=== PATIENT | female | born 1935 | race Caucasian/White ===

== ENCOUNTER 2022-05-10 08:47 | Inpatient (IN) | payer BC ==
[~2022-05-10] VITALS: Ht 165.1 cm; Wt 60.3 kg
--- NOTE | 2022-05-10 09:15 | NUR ---
UPPER QUADRANT ABDOMINAL PAIN, NAUSEA SINCE LAST NIGHT. PER EMS DAUGHTERENDORSES "DARK TARRY STOOL"
[2022-05-10] MEDS ORDERED: IV NS 0.9% 500 ML BAG IV ONE ×2 (09:30→12:30)
--- NOTE | 2022-05-10 09:32 | NUR ---
PT TO RADIOLOGY FOR ABDOMINAL CT SCAN VIA [facility].
--- NOTE | 2022-05-10 09:45 | NUR ---
established iv line at right ac 20 g infusing
--- NOTE | 2022-05-10 09:52 | NUR ---
blood sample obtained sent to lab
[2022-05-10 10:03] LABS: BASOPHILS % (AUTO) 0.2 % (0.0-2.0); HEMATOCRIT 48 % (33-45); HEMOGLOBIN 15.6 g/dL (11.5-14.8); LYMPHOCYTES # (AUTO) 0.9 K/uL (0.8-4.8); LYMPHOCYTES % (AUTO) 8.3 % (20.0-44.0); MEAN CORPUSCULAR HGB CONC 33 g/dl (31.0-36.0); MEAN CORPUSCULAR VOLUME 94 fL (82-100); MONOCYTES # (AUTO) 0.3 K/uL (0.1-1.30); MONOCYTES % (AUTO) 2.8 % (2.0-12.0); NEUTROPHILS % (AUTO) 88.7 % (43.0-81.0); PLATELET COUNT (AUTO) 354 K/uL (150-450); RED BLOOD CELL COUNT(AUTO) 5.08 MIL/uL (4.0-5.2); WHITE BLOOD COUNT (AUTO) 11.3 K/uL (4.3-11.0)
[2022-05-10 10:23] LABS: ALANINE AMINOTRANSFERASE 16 U/L (12-78); ALBUMIN 4.2 g/dL (3.4-5.0); ALKALINE PHOSPHATASE 114 U/L (46-116); ASPARTATE AMINOTRANSFERASE 14 U/L (15-37); BILIRUBIN,DIRECT 0.1 mg/dL (0.0-0.2); BILIRUBIN,TOTAL 0.5 mg/dL (0.2-1.0); CALCIUM, SERUM 9.7 mg/dL (8.5-10.1); CARBON DIOXIDE 29 mmol/L (21-32); CHLORIDE 98 mmol/L (98-107); CREATININE 1.1 mg/dL (0.6-1.3); GLUCOSE 202 mg/dL (74-106); LIPASE 101 U/L (73-393); POTASSIUM 3.6 mmol/L (3.5-5.1); SODIUM SERUM 138 mmol/L (136-145); TOTAL PROTEIN, SERUM 8.9 g/dL (6.4-8.2); UREA NITROGEN, BLOOD 24 mg/dL (7-18)
--- NOTE | 2022-05-10 10:30 | NUR ---
COVID SWAB COLLECTED AND SENT TO LAB
--- NOTE | 2022-05-10 10:44 | NUR ---
Leida GARDINER PAGED FOR SX CONSULT
[2022-05-10] MEDS ORDERED: PARO10TA4 PO (10:45)
[2022-05-10] MEDS ORDERED: APIX5TAB PO (10:45)
[2022-05-10] MEDS ORDERED: DILT120C47 PO (10:45)
--- NOTE | 2022-05-10 10:45 | NUR ---
MOVE SHEET SUBMITTED.
--- NOTE | 2022-05-10 10:46 | NUR ---
PANEL ON-CALL PAGED
--- NOTE | 2022-05-10 10:55 | NUR ---
DR. MILTON SPEAKING WITH DR. AZAR
--- NOTE | 2022-05-10 10:56 | NUR ---
DR AZAR SPEAKING W/ DR THORPE
--- NOTE | 2022-05-10 10:58 | NUR ---
DR. AZAR SPEAKING W/ DR MILTON.
--- NOTE | 2022-05-10 11:14 | NUR ---
ROOM 323-2 PER HOUSE SUP
[2022-05-10] MEDS ORDERED: MAG HYDROX/AL HYDROX/SIMETH 30 ML UDC PO PRN (12:00)
[2022-05-10] MEDS ORDERED: MAGNESIUM HYDROXIDE 30 ML UDC PO PRN (12:00)
[2022-05-10] MEDS ORDERED: Z GUARD REMEDY 4 OZ OINT TP PRN (12:00)
[2022-05-10] MEDS ORDERED: ACETAMINOPHEN 325 MG TABLET PO PRN (12:00)
--- NOTE | 2022-05-10 12:07 | NUR ---
PT REPORT GIVEN TO MISAEL DAWN
[2022-05-10] MEDS ORDERED: PIPERACILLIN /TAZOBACTAM 3.375 G in IV D5W 50 ML IV ONE (12:30)
--- NOTE | 2022-05-10 12:35 | NUR ---
PT TRANSFERRED TO [facility] VIA [facility]. WARM HANDOFF GIVEN TO RN ASSIGNED.
--- NOTE | 2022-05-10 12:36 | NUR ---
STRUCTURAL WORKER NOTES RECEIVED PT FROM E.R. STAFF VIA HARPAL, PT IS AWAKE, ALERT AND ORIENTED, WITH COMPLAINT OF SOME ABDOMINAL PAIN, NOT IN DISTRESS, TOLERATES ROOM AIR WELL, ASSISTED TO BED, MADE COMFORTABLE, ROOM SET UP ORIENTATION PROVIDED TO PT, VERBALIZED UNDERSTANDING, ADMITTING ORDERS RECEIVED FROM MD, CALL LIGHT WITHIN REACH, PT KEPT NPO ORDERED, NEEDS ATTENDED.
[2022-05-10] MEDS: IV D5/0.45 NACL 1,000 ML IV PRN (13:32)
[2022-05-10] MEDS: MORPHINE SULFATE INJ 2 MG/ML DISP.SYRIN IV PRN ×2 (13:45→18:17)
--- NOTE | 2022-05-10 19:04 | NUR ---
CITRIX CONSULTANT NOTES PT IN BED, AWAKE, ALERT AND ORIENTED, PAIN MEDICATION GIVEN FOR ABDOMINAL PAIN, VERBALIZED RELIEF, KEPT PT NPO, PT SEEN AND EXAMINED BY MAREN NETWORK LIAISON, ORDERED TO INSERT NGT WITH LOW INTERMITTENT SUCTION, NOTED AND CARRIED OUT, PT VOMITED AROUND 500ML OF BLACK VOMIT, AWAITING CXR RESULT FOR VERIFICATION OF NG PLACEMENT, DR. THORPE AWARE, ORDERED STAT CBC, PT NOT IN DISTRESS, IV FLUIDS INFUSING WELL, ENDORSED TO PM NURSE FOR CONTINUITY OF CARE.
--- NOTE | 2022-05-10 19:30 | NUR ---
RN OPENING NOTE RECEIVED PATIENT IN BED, AWAKE, ALERT AND ORIENTED X3. AFEBRILE AND NOT IN ANY FORM OF ACUTE DISTRESS. BREATHING EVEN AND NON LABORED. WITH NG TUBE IN PLACE ON LOW INTERMITTENT SUCTION. ON NPO ORDERED. WITH IV ACCESS ON RIGHT AC 20G INFUSING WITH D5 1/2NS AT 75ML/HR. SAFETY MEASURES IN PLACE. KEPT BED IN LOCKED AND IN LOW POSITION. SIDE RAILS UP X2. ADVISED TO USE THE CALL LIGHT WHEN IN NEED OF ASSISTANCE.
[2022-05-10 20:00] VITALS: BP 140/93
[2022-05-10 20:11] LABS: BASOPHILS % (AUTO) 0.2 % (0.0-2.0); HEMATOCRIT 47 % (33-45); HEMOGLOBIN 15.4 g/dL (11.5-14.8); LYMPHOCYTES # (AUTO) 1.2 K/uL (0.8-4.8); LYMPHOCYTES % (AUTO) 9.6 % (20.0-44.0); MEAN CORPUSCULAR HGB CONC 33 g/dl (31.0-36.0); MEAN CORPUSCULAR VOLUME 93 fL (82-100); MONOCYTES # (AUTO) 0.7 K/uL (0.1-1.30); MONOCYTES % (AUTO) 5.4 % (2.0-12.0); NEUTROPHILS # (AUTO) 10.5 K/uL (1.8-8.9); NEUTROPHILS % (AUTO) 84.8 % (43.0-81.0); PLATELET COUNT (AUTO) 344 K/uL (150-450); RED BLOOD CELL COUNT(AUTO) 5.04 MIL/uL (4.0-5.2); WHITE BLOOD COUNT (AUTO) 12.4 K/uL (4.3-11.0)
[2022-05-11] VITALS: BP 152/85
[2022-05-11 04:00] VITALS: BP 136/94
[2022-05-11] MEDS: IV D5/0.45 NACL 1,000 ML IV PRN ×2 (05:27→19:38)
[2022-05-11 06:48] LABS: BASOPHILS % (AUTO) 0.2 % (0.0-2.0); HEMATOCRIT 45 % (33-45); HEMOGLOBIN 14.9 g/dL (11.5-14.8); LYMPHOCYTES # (AUTO) 1.5 K/uL (0.8-4.8); MEAN CORPUSCULAR HGB CONC 33 g/dl (31.0-36.0); MEAN CORPUSCULAR VOLUME 93 fL (82-100); MONOCYTES # (AUTO) 1.2 K/uL (0.1-1.30); MONOCYTES % (AUTO) 9.6 % (2.0-12.0); NEUTROPHILS % (AUTO) 78.2 % (43.0-81.0); PLATELET COUNT (AUTO) 308 K/uL (150-450); WHITE BLOOD COUNT (AUTO) 12.8 K/uL (4.3-11.0)
--- NOTE | 2022-05-11 06:50 | NUR ---
RN CLOSING NOTE PATIENT IN BED, WITH HOB ELEVATED, ASLEEP BUT EASY TO AROUSE AND RESPONSIVE. AFEBRILE AND NOT IN ANY FORM ACUTE DISTRESS. BREATHING EVEN AND NON LABORED. WITH NG TUBE IN PLACE ON LOW INTERMITTENT SUCTION. MAINTAINED ON NPO ORDERED. WITH IV ACCESS ON RIGHT AC 20G INFUSING WITH D5 1/2NS AT 75ML/HR. SAFETY MEASURES IN PLACE. KEPT BED IN LOCKED AND IN LOW POSITION. SIDE RAILS UP X2. ADVISED TO USE THE CALL LIGHT WHEN IN NEED OF ASSISTANCE.CONSTANT VISUAL CHECK DONE TO ENSURE SAFETY. ALL NURSING NEEDS ATTENDED.
--- NOTE | 2022-05-11 07:00 | NUR ---
TECHNICAL SUPPORT PROFESSIONAL OPENING NOTES: RECEIVED PT IN BED ASLEEP IN BED,EASILY AROUSED WITH STIMULI. ALERT AND ORIENTED X 3. NO SOB O CARDIAC DISTRESS NOTED. ON AD TRAFFICKER: CURRENT READING SR @87BPM. MAINTAINED ON NPO, NOTED WITH NGT ON R NARES HOOKED TO INTERMITTENT SUCTION NOTED WITH COFFEE GROUND DISCHARGE. IV ACCESS ON RAC GAUGE 20 PATENT AND INTACT AND IV FLUID RUNNING WELL D5 1/2 NS @75ML/HR. SAFETY PRECAUTIONS MAINTAINED: BED LOCKED AND IN LOWEST POSITION, SIDE RAILS UP X 2. CALL LIGHT IN EASY REACH AND WILL MONITOR PT ACCORDINGLY.
[2022-05-11 07:37] LABS: CALCIUM, SERUM 8.9 mg/dL (8.5-10.1); CARBON DIOXIDE 27 mmol/L (21-32); CHLORIDE 102 mmol/L (98-107); GLUCOSE 134 mg/dL (74-106); MAGNESIUM 2.4 mg/dL (1.8-2.4); PHOSPHORUS 3.9 mg/dL (2.5-4.9); POTASSIUM 4.2 mmol/L (3.5-5.1); SODIUM SERUM 138 mmol/L (136-145); UREA NITROGEN, BLOOD 29 mg/dL (7-18)
[2022-05-11 08:00] VITALS: BP 138/87
--- NOTE | 2022-05-11 11:18 | NUR ---
RN NOTES: FOLLOW UP XRAY OF SMALL BOWEL SPOKE TO GAYLA LEONE) AND PT IS ON SCHEDULE AFTER LUNCH TODAY. INFORMED PT AND VERBALIZED UNDERSTANDING.
--- NOTE | 2022-05-11 12:45 | NUR ---
RN NOTES: FOLLOWED UP FOR SMALL BOWEL FOLLOW THROUGH XRAY, SPOKE TO ABDULAZIZ (TRISTEN) AND THEY ARE AWARE PT WILL HAVE THE PROCEDURE TODAY. THEY WILL TOW MOTOR DRIVER PT.
[2022-05-11 12:46] VITALS: BP 134/83
--- NOTE | 2022-05-11 15:23 | NUR ---
RN NOTES: SEEN AND EXAMINED BY DATA COLLECTION ASSOCIATE MAREN, STATED MAINTAIN PT IN NPO, FOLLOW UP WITH X-RAY AND CHANGE IT TO STAT. CALLED RADIOLOGY DEPT SPOKE TO OTIS, INFORMED THEM X-RAY OF SMALL BOWEL FOLLOW THROUGH IS STAT. HE SAID THEY WILL GO UP. WILL FOLLOW UP.
--- NOTE | 2022-05-11 15:55 | NUR ---
RN NOTES: FOLLOWED UP RADIOLOGY, SPOKE TO LYNSEY (DIRECTOR EMPLOYEE SAFETY AND HEALTH) PT WILL BE PICKED UP IN 30 MINS. WILL FOLLOW UP.
[2022-05-11 16:00] VITALS: BP 134/86
[2022-05-11] MEDS ORDERED: DIATR MEGLU/DIATRIZOATE SODIUM 120 ML BOTTLE (GASTROGRAPHIN) ONE (16:27)
--- NOTE | 2022-05-11 17:00 | NUR ---
RN NOTES: PT WENT TO XRAY DEPT FOR SMALL BOWEL FOLLOW THROUGH X-RAY, PT STABLE. UNHOOKED TO SUCTION. ACCOMPANIED TO RADIOLOGY DEPT, AND INJECTED BARIUM VIA NGT TUBE, CHANO ASCENCIO MADE AWARE.
[2022-05-11] MEDS: ONDANSETRON HCL/PF 4 MG/2 ML VIAL IVP PRN (17:32)
--- NOTE | 2022-05-11 17:38 | NUR ---
RN NOTES: INFORMED PHARMACOGENETICIST SILVA PT VOMITED X2 IN RADIOLOGY DEPT, ZOFRAN IV GIVEN. NO FURTHER ORDERS NOTED.
--- NOTE | 2022-05-11 19:00 | NUR ---
RN CLOSING NOTES: PT STILL IN RADIOLOGY DEPARTMENT, ENDORSEMENT GIVEN TO NOC SHIFT RN FOR SHANIQUA.
--- NOTE | 2022-05-11 19:30 | NUR ---
ASSISTANT WINEMAKER OPENING NOTE RECEIVED PATIENT IN BED, WITH HOB ELEVATED, ALERT AND ORIENTED X3. AFEBRILE AND NOT IN ANY FORM OF ACUTE DISTRESS. BREATHING EVEN AND NON LABORED. WITH NG TUBE IN PLACE AND PER RADIOLOGIST, HOLD LOW INTERMITTENT SUCTION FOR THE MEANTIME IN PREPARATION FOR SMALL BOWEL FOLLOW THROUGH. MAINTAINED ON NPO ORDERED. WITH IV ACCESS ON RIGHT AC 20G INFUSING WITH D5 1/2NS AT 75ML/HR. SAFETY MEASURES IN PLACE. KEPT BED IN LOCKED AND IN LOW POSITION. SIDE RAILS UP X2. ADVISED TO USE THE CALL LIGHT WHEN IN NEED OF ASSISTANCE.
[2022-05-11 20:00] VITALS: BP 125/80
--- NOTE | 2022-05-11 21:00 | NUR ---
CENTRAL AISLE CASHIER NOTE AT AROUND 2049, RADIOLOGIST WESLY CAME TO PERFORM ANOTHER X-RAY TO CHECK THE BARIUM BUT PER TECH, THE CONTRAST DIDN'T MOVE OR PROGRESS. RADIOLOGIST THEN SUGGEST TO DO ANOTHER DOSE BUT WHEN THEY DID IT THIS MORNING, PATIENT KEEPS ON VOMITING. NOTIFIED MARTHA ASCENCIO ABOUT THE SITUATION AND ADVISED TO CONTACT DR. MILTON. INFORM DR. MILTON AND TO ASK IF HE STILL WANTS TO PROCEED WITH THE PROCEDURE. AWAITING FOR RESPONSE.
[2022-05-12] VITALS (8 sets, daily range): BP systolic 106–138; BP diastolic 66–95
[2022-05-12] MEDS: ONDANSETRON HCL/PF 4 MG/2 ML VIAL IVP PRN ×2 (00:44→06:37)
--- NOTE | 2022-05-12 00:58 | NUR ---
ELECTRIC SHOVEL OPERATOR NOTE AT AROUND 1240, PATIENT HAD EMESIS X1 WITH GREENISH (BILE) VOMITUS. ADMINISTERED ZOFRAN VIA IV.
--- NOTE | 2022-05-12 06:45 | NUR ---
LITHOPONE MILL WORKER NOTE PATIENT HAD EPISODES OF EMESIS (BILE) APPROX. 30ML EVERY TIME SHE VOMITS. NO NEW ORDER FROM MD YET. ZOFRAN IV GIVEN.
[2022-05-12 06:46] LABS: BASOPHILS % (AUTO) 0.1 % (0.0-2.0); HEMATOCRIT 43 % (33-45); HEMOGLOBIN 14.6 g/dL (11.5-14.8); LYMPHOCYTES # (AUTO) 1.3 K/uL (0.8-4.8); LYMPHOCYTES % (AUTO) 10.5 % (20.0-44.0); MEAN CORPUSCULAR HGB CONC 34 g/dl (31.0-36.0); MEAN CORPUSCULAR VOLUME 93 fL (82-100); MONOCYTES % (AUTO) 8.3 % (2.0-12.0); NEUTROPHILS % (AUTO) 81.1 % (43.0-81.0); PLATELET COUNT (AUTO) 323 K/uL (150-450); RED BLOOD CELL COUNT(AUTO) 4.67 MIL/uL (4.0-5.2); WHITE BLOOD COUNT (AUTO) 12.3 K/uL (4.3-11.0)
--- NOTE | 2022-05-12 06:48 | NUR ---
DIRECTOR OF RESIDENTIAL SERVICES CLOSING NOTE PATIENT IN BED, WITH HOB ELEVATED, ASLEEP BUT EASY TO AROUSE AND RESPONSIVE. AFEBRILE AND NOT IN ANY FORM OF ACUTE DISTRESS. BREATHING EVEN AND NON LABORED. WITH NG TUBE IN PLACE AND PER RADIOLOGIST, HOLD LOW INTERMITTENT SUCTION FOR THE MEANTIME. AWAITING FOR MD'S ORDER IF WILL PROCEED WITH SBFT. MAINTAINED ON NPO ORDERED. WITH IV ACCESS ON RIGHT AC 20G INFUSING WITH D5 1/2NS AT 75ML/HR. MEDICATED ORDERED. SAFETY MEASURES IN PLACE. KEPT BED IN LOCKED AND IN LOW POSITION. SIDE RAILS UP X2. ADVISED TO USE THE CALL LIGHT WHEN IN NEED OF ASSISTANCE.
[2022-05-12 06:53] LABS: ALBUMIN 3.2 g/dL (3.4-5.0); BILIRUBIN,DIRECT 0.2 mg/dL (0.0-0.2); BILIRUBIN,TOTAL 0.6 mg/dL (0.2-1.0); CALCIUM, SERUM 8.7 mg/dL (8.5-10.1); MAGNESIUM 2.4 mg/dL (1.8-2.4); PHOSPHORUS 4.2 mg/dL (2.5-4.9); POTASSIUM 4.1 mmol/L (3.5-5.1); TOTAL PROTEIN, SERUM 7.4 g/dL (6.4-8.2)
--- NOTE | 2022-05-12 09:32 | NUR ---
RN WILL CHECK WITH SUPERVISOR ASSEMBLY ROOM MAREN TO FIND OUT IF SHE WANTS TO CONTINUE EXAM , DO TO PT STATUS
[2022-05-12] MEDS: IV D5/0.45 NACL 1,000 ML IV PRN (09:42)
[2022-05-12] MEDS ORDERED: ANESTHESIA TRAY IN PYXIS 1 EA TRAY MC ONE ×3 (14:10→21:09)
[2022-05-12] MEDS ORDERED: BUPIVACAINE MPF 0.5% W/EPI INJ 30 ML VIAL ONE ×2 (14:11→15:51)
[2022-05-12] MEDS ORDERED: LIDOCAINE 1% INJ 50 ML MDV IJ ONE ×2 (14:11→15:51)
[2022-05-12] MEDS ORDERED: FENTANYL PF 100MCG/2ML AMPUL ONE (16:09)
[2022-05-12] MEDS ORDERED: ROCURONIUM BROMIDE 50 MG/5 ML ONE (18:46)
--- NOTE | 2022-05-12 19:00 | NUR ---
HIGH SCHOOL INDUSTRIAL ARTS TEACHER OPENING NOTE PATIENT IS OUT FOR SURGERY, NOT COMING BACK TO UNIT YET . CHANGE SHIFT REPORT RECEIVED FROM DAY SHIFT RN.
--- NOTE | 2022-05-12 19:00 | NUR ---
RN CLOSING NOTE PATIENT NPO SINCE HER [place] [facility] [place] DUE TO BOWEL OBSTRUCTION. PATIENT WITH NG TUBE; HAD SOME EPISODES OF GREEN LIQUID EMESIS IN THE MORNING, ONLINE PRODUCER MAREN ORDERED INTERMITTENT NG TUBE SUCTION TOTAL OF 700 CC WAS THE OUTPUT. PATIENT WAS TAKEN TO SURGERY AT 1700 FOR THE LAPAROSCOPIC SURGERY BLOOD TRANSFUSION, ANESTHESIA AND SURGERY CONSENT FORM ALL WAS SIGNED BY PATIENT AND ARE IN THE CHART. PATIENT'S SON KAMILA AND HER DAUGHTER WERE AT BEDSIDE UPON TAKING THE CONSENT FROM THE PATIENT. PATIENT STILL IN SURGERY/RECOVERY UNTIL NOW. WILL ENDORSE THE PATIENT TO THE TIME BROKER NURSE.
--- NOTE | 2022-05-12 22:00 | NUR ---
ICU/SALESPERSON NECKTIES PT CAME FROM SURGERY. PT PLACED ON MONITOR. PT'S N/G PLACED ON LOW INTERMIT SUCTION. PT CURRENTLY DENIES ANY PAIN. ABDOMEN HAS X3 STERI STRIPS, WHICH IS CLEAN DRY AND INTACT. CALL LIGHT WITHIN REACH. NO NEW ORDERS RECEIVED.
[2022-05-13] VITALS (24 sets, daily range): BP systolic 94–147; BP diastolic 62–83
[2022-05-13] MEDS: IV D5/0.45 NACL 1,000 ML IV PRN ×2 (02:28→14:59)
[2022-05-13 04:51] LABS: HEMATOCRIT 37 % (33-45); HEMOGLOBIN 12.2 g/dL (11.5-14.8); LYMPHOCYTES # (AUTO) 0.9 K/uL (0.8-4.8); LYMPHOCYTES % (AUTO) 8.2 % (20.0-44.0); MEAN CORPUSCULAR HGB CONC 33 g/dl (31.0-36.0); MEAN CORPUSCULAR VOLUME 94 fL (82-100); MONOCYTES # (AUTO) 0.5 K/uL (0.1-1.30); NEUTROPHILS % (AUTO) 86.8 % (43.0-81.0); PLATELET COUNT (AUTO) 241 K/uL (150-450); WHITE BLOOD COUNT (AUTO) 10.4 K/uL (4.3-11.0)
[2022-05-13 05:16] LABS: ALBUMIN 2.5 g/dL (3.4-5.0); BILIRUBIN,TOTAL 0.5 mg/dL (0.2-1.0); CALCIUM, SERUM 7.8 mg/dL (8.5-10.1); CREATININE 1.1 mg/dL (0.6-1.3); POTASSIUM 4.3 mmol/L (3.5-5.1); TOTAL PROTEIN, SERUM 5.9 g/dL (6.4-8.2)
--- NOTE | 2022-05-13 07:30 | NUR ---
OPENING NOTE: REPORT RECEIVED FROM YUNG DUBOSE. ORDERS AND LABS REVIEWED DURING REPORT. PER REPORT PT HAD EX LAP LAST NIGHT. PER OPERATIVE REPORT LYSIS OF ADHESIONS WAS PERFORMED BY DR CYNDI MILTON. LEFT POKE SITES ON LEFT SIDE OF PATIENTS ABDOMEN NOTED, CDI. PT DENIES PAIN OR NEEDS AT THIS TIME. MONTES CATHETER IN PLACE DRAINING CLEAR YELLOW URINE. PT CHECKED ON HOURLY AND PRN BY NURSING STAFF.
--- NOTE | 2022-05-13 19:32 | NUR ---
END OF SHIFT NOTE: PT HAD A GOOD DAY. PT WALKED AROUND A SMALL SECTION OF THE NURSES STATION TODAY WITHOUT DIFFICULTY. NG TUBE REPLACED TODAY WITHOUT DIFFICULTY. MINIMAL OUTPUT FROM NG, NOT ENOUGH TO MEASURE. PT CHECKED ON HOURLY AND PRN BY NURSING STAFF.
[2022-05-14] VITALS (10 sets, daily range): BP systolic 112–154; BP diastolic 63–81
[2022-05-14] MEDS: IV D5/0.45 NACL 1,000 ML IV PRN ×2 (04:21→18:23)
[2022-05-14 04:48] LABS: BASOPHILS % (AUTO) 0.2 % (0.0-2.0); EOSINOPHILS % (AUTO) 0.4 % (0.0-6.0); HEMATOCRIT 38 % (33-45); HEMOGLOBIN 12.4 g/dL (11.5-14.8); LYMPHOCYTES # (AUTO) 2.3 K/uL (0.8-4.8); LYMPHOCYTES % (AUTO) 29.7 % (20.0-44.0); MEAN CORPUSCULAR HGB CONC 33 g/dl (31.0-36.0); MEAN CORPUSCULAR VOLUME 94 fL (82-100); MONOCYTES # (AUTO) 0.8 K/uL (0.1-1.30); MONOCYTES % (AUTO) 10.1 % (2.0-12.0); NEUTROPHILS # (AUTO) 4.6 K/uL (1.8-8.9); NEUTROPHILS % (AUTO) 59.6 % (43.0-81.0); PLATELET COUNT (AUTO) 231 K/uL (150-450); RED BLOOD CELL COUNT(AUTO) 4.02 MIL/uL (4.0-5.2); WHITE BLOOD COUNT (AUTO) 7.6 K/uL (4.3-11.0)
[2022-05-14 05:06] LABS: ALBUMIN 2.5 g/dL (3.4-5.0); BILIRUBIN,TOTAL 0.6 mg/dL (0.2-1.0); CALCIUM, SERUM 7.8 mg/dL (8.5-10.1); CREATININE 0.8 mg/dL (0.6-1.3); POTASSIUM 3.5 mmol/L (3.5-5.1); TOTAL PROTEIN, SERUM 5.9 g/dL (6.4-8.2)
--- NOTE | 2022-05-14 05:50 | NUR ---
ABEBE/VICE PRESIDENT QUALITY IMPROVEMENT PT WAS TRANSFERED TO ROOM 120-2 FROM [facility]. WILL GIVE REPORT TO DAY NURSE. N/G TUBE IS PLACED TO LOW INTERM. SUCTION.
--- NOTE | 2022-05-14 12:16 | NUR ---
RN NOTE NGT ADVANCED 12CM, NOW READING 70CM AT THE TIP OF THE NOSE PER ORDER MAREN RAMÍREZ ORDERED.
--- NOTE | 2022-05-14 12:17 | NUR ---
RN NOTE PT AMBULATED WITH ASSIST. PT TOLERATING WELL, NO SHORTNESS OF BREATH OR ABD PAIN/DISCOMFORT REPORTED DURING AMBULATION.
--- NOTE | 2022-05-14 19:25 | NUR ---
ABEBE/DAYCARE PROVIDER REPORT RECEIVED FROM DAY NURSE. CALL LIGHT WITHIN REACH. SEE FLOWSHEET FOR ASSESSMENT.
--- NOTE | 2022-05-14 19:45 | NUR ---
ABEBE/DIRECTOR OF CONSERVATION RIGHT LOWER QUAD. SLOW BOWEL SOUNDS. THE LEFT UPPER AND LOWER QUAD. AND RIGHT UPPER NO BOWEL SOUNDS.
--- NOTE | 2022-05-14 22:30 | NUR ---
ICU/MUSHROOM SORTER GRADER PT CURRENTLY DENIES ANY PAIN. N/G TUBE IS CONNECTED TO LOW INTER. SUCTION. NO DISTRESS SEN AT THIS TIME. CALL LIGHT WITHIN REACH.
[2022-05-15] VITALS: BP 141/73
[2022-05-15 04:00] VITALS: BP 118/70
--- NOTE | 2022-05-15 05:45 | NUR ---
ABEBE/LENDING ADVISOR PT RESTING COMFORTABLE, NO SIGNS OF DISTRESS. PT DENIES ANY PAIN AT THIS TIME. CALL LIGHT WITHIN REACH
[2022-05-15] MEDS: IV D5/0.45 NACL 1,000 ML IV PRN ×2 (06:24→19:28)
--- NOTE | 2022-05-15 06:42 | NUR ---
ABEBE/ENDOSCOPY SPECIALTY TECHNICIAN REPORT TO BE GIVEN DAY NURSE
[2022-05-15 07:12] LABS: CALCIUM, SERUM 7.9 mg/dL (8.5-10.1); CREATININE 0.7 mg/dL (0.6-1.3); POTASSIUM 3.6 mmol/L (3.5-5.1)
[2022-05-15 07:18] LABS: BASOPHILS % (AUTO) 0.3 % (0.0-2.0); HEMATOCRIT 40 % (33-45); HEMOGLOBIN 13.3 g/dL (11.5-14.8); LYMPHOCYTES # (AUTO) 1.9 K/uL (0.8-4.8); LYMPHOCYTES % (AUTO) 27.9 % (20.0-44.0); MEAN CORPUSCULAR HGB CONC 33 g/dl (31.0-36.0); MEAN CORPUSCULAR VOLUME 95 fL (82-100); MONOCYTES # (AUTO) 0.8 K/uL (0.1-1.30); MONOCYTES % (AUTO) 12.1 % (2.0-12.0); NEUTROPHILS # (AUTO) 3.9 K/uL (1.8-8.9); NEUTROPHILS % (AUTO) 57.7 % (43.0-81.0); PLATELET COUNT (AUTO) 249 K/uL (150-450); RED BLOOD CELL COUNT(AUTO) 4.24 MIL/uL (4.0-5.2); WHITE BLOOD COUNT (AUTO) 6.7 K/uL (4.3-11.0)
--- NOTE | 2022-05-15 07:37 | NUR ---
RN OPENING NOTES RECEIVED PATIENT REPORT FROM [facility] PATIENT ON 4 LITERS SUPPLEMENTAL OXYGEN VIA NASAL CANULA. MONTES CATHETER DRAINING OUTPUT BY GRAVITY. NPO STATUS NOTED, LEFT NARE AT 70 CM KAMILA NGT SET TO LOW INTERMITTENT SUCTION. IV ACCESS ON RIGHT NAC 20 GAUGE AND LEFT WRIST 18 RUNNING FLUIDS ORDERED. SAFETY MEASURES IMPLEMENTED WILL CONTINUE PLAN OF CARE AND ANTICIPATE NEEDS.
[2022-05-15 08:00] VITALS: BP 158/78
[2022-05-15 12:00] VITALS: BP 151/80
[2022-05-15 16:00] VITALS: BP 139/73
--- NOTE | 2022-05-15 18:48 | NUR ---
HAND OFF REPORT GIVEN TO NIGHTSHIFT NURSE.
[2022-05-15 20:00] VITALS: BP 140/70
[2022-05-16] VITALS: BP 115/67
[2022-05-16 04:00] VITALS: BP 124/75
--- NOTE | 2022-05-16 07:25 | NUR ---
DR. BADILLO INFORMED PATIENT NOTED PULL NG TUBE AND IV LINES, PATIENT IS ALERT TO NAME AND DATE, EPISODES OF FORGETFULNESS, AND ATTEMPTS TO REMOVE LINES. DR. BADILLO WITH ORDER TO REINSERT NGT, BILATERAL SOFT WRIST RESTRAINTS AND CXR AFTER NGT INSERTION.
--- NOTE | 2022-05-16 07:56 | NUR ---
NGT REINSERTED TOLERATED WELL, AWAITING FOR CXR.
[2022-05-16 08:00] VITALS: BP 147/87
[2022-05-16 12:00] VITALS: BP 147/87
[2022-05-16 14:56] LABS: BASOPHILS % (AUTO) 0.4 % (0.0-2.0); HEMATOCRIT 40 % (33-45); HEMOGLOBIN 13.4 g/dL (11.5-14.8); LYMPHOCYTES # (AUTO) 1.5 K/uL (0.8-4.8); LYMPHOCYTES % (AUTO) 18.2 % (20.0-44.0); MEAN CORPUSCULAR HGB CONC 33 g/dl (31.0-36.0); MEAN CORPUSCULAR VOLUME 94 fL (82-100); MONOCYTES # (AUTO) 0.8 K/uL (0.1-1.30); MONOCYTES % (AUTO) 9.3 % (2.0-12.0); NEUTROPHILS # (AUTO) 5.9 K/uL (1.8-8.9); NEUTROPHILS % (AUTO) 70.1 % (43.0-81.0); PLATELET COUNT (AUTO) 309 K/uL (150-450); RED BLOOD CELL COUNT(AUTO) 4.31 MIL/uL (4.0-5.2); WHITE BLOOD COUNT (AUTO) 8.4 K/uL (4.3-11.0)
[2022-05-16] MEDS: IV D5/0.45 NACL 1,000 ML IV PRN (14:57)
[2022-05-16 15:30] LABS: CREATININE 0.7 mg/dL (0.6-1.3); POTASSIUM 3.5 mmol/L (3.5-5.1)
[2022-05-16 16:00] VITALS: BP 143/89
--- NOTE | 2022-05-16 16:40 | NUR ---
RN NOTE PATIENT REMOVED NG TUBE, AND RESTRAINTS. CHARGE NURSE AWARE.
--- NOTE | 2022-05-16 17:16 | NUR ---
RN NOTE NOTIFIED KALLI CUMMINS NP THAT PATIENT STRONGLY REFUSED REINSERTION OF NG TUBE. PER DR ORDER: START REGLAND 5MG IV TID.
--- NOTE | 2022-05-16 17:21 | NUR ---
RN NOTE DR MILTON WAS NOTIFIED OF PATIENT'S REFUSAL TO REINSERT NG TUBE. DAUGHTER IS AT BEDSIDE REQUESTING FOR DR TO ORDER 0ATIVAN FOR AGITATION. NOTIFIED DR PRINCE THORPE.
[2022-05-16] MEDS: ONDANSETRON HCL/PF 4 MG/2 ML VIAL IVP PRN (18:15)
--- NOTE | 2022-05-16 19:30 | NUR ---
RN OPENING NOTE PT TIRED AND CONFUSED. A&OX1 BUT COOPERATIVE. SKIN IS PALE. PT ON NC 4 LPM AND TOLERATING WELL. NG TUBE INTACT AND IN L NARE. BILATERAL SOFT RESTRAINTS IN PLACE. L WRIST 20G AND R WRIST 20G INTACT AND FLUSHED. DENIES OTHER NEEDS AT THIS TIME. SAFETY PRECAUTIONS IN PLACE. BED LOCKED AND AT LOWEST LEVEL WITH 2 RAILS UP. BED ALARM ON AND CALL LIGHT WITHIN REACH. Addendum: 05/16/22 at 2011 by JANAE GEORGE RN NG TUBE ATTACHED TO INTERMITTENT SUCTION.
[2022-05-16 20:00] VITALS: BP 125/79
[2022-05-17] VITALS: BP 128/78
[2022-05-17] MEDS: IV D5/0.45 NACL 1,000 ML IV PRN ×2 (03:42→17:31)
[2022-05-17 04:00] VITALS: BP 121/79
--- NOTE | 2022-05-17 06:36 | NUR ---
RN CLOSING NOTE PT A&OX1. SKIN IS WARM AND DRY. RESPIRATIONS EVEN AND UNLABORED ON 4 LPM NC. PT REMAINS NPO AND NO BM. NG TUBE OUTPUT OF 200 ML. BILAT SOFT RESTRAINTS IN PLACE. L WRIST 20G AND R FA 20G IVS INTACT AND PATENT. SAFETY PRECAUTIONS IN PLACE. BED LOCKED AND AT LOWEST LEVEL. 2 RAILS UP AND BED ALARM ON. CALL LIGHT WITHIN REACH.
[2022-05-17 07:14] LABS: BASOPHILS % (AUTO) 0.5 % (0.0-2.0); EOSINOPHILS % (AUTO) 3.9 % (0.0-6.0); HEMATOCRIT 39 % (33-45); HEMOGLOBIN 13.3 g/dL (11.5-14.8); LYMPHOCYTES # (AUTO) 1.4 K/uL (0.8-4.8); MEAN CORPUSCULAR HGB CONC 34 g/dl (31.0-36.0); MEAN CORPUSCULAR VOLUME 93 fL (82-100); MONOCYTES # (AUTO) 0.8 K/uL (0.1-1.30); MONOCYTES % (AUTO) 11.4 % (2.0-12.0); NEUTROPHILS # (AUTO) 4.8 K/uL (1.8-8.9); NEUTROPHILS % (AUTO) 65.2 % (43.0-81.0); PLATELET COUNT (AUTO) 321 K/uL (150-450); RED BLOOD CELL COUNT(AUTO) 4.18 MIL/uL (4.0-5.2); WHITE BLOOD COUNT (AUTO) 7.4 K/uL (4.3-11.0)
--- NOTE | 2022-05-17 07:20 | NUR ---
RN OPENING NOTES RECEIVED PATIENT ALERT X 2. PATIENT ON 4 LITERS SUPPLEMENTAL OXYGEN VIA NASAL CANULA. MONTES CATHETER DRAINING OUTPUT BY GRAVITY. NPO STATUS NOTED, LEFT NARE AT 70 CM KAMILA NGT SET TO LOW INTERMITTENT SUCTION. IV ACCESS ON RIGHT WRIST20 GAUGE AND LEFT WRIST 18 RUNNING FLUIDS ORDERED. SAFETY MEASURES IMPLEMENTED WILL CONTINUE PLAN OF CARE AND ANTICIPATE NEEDS.
[2022-05-17 08:00] VITALS: BP 119/79
--- NOTE | 2022-05-17 08:00 | NUR ---
RN NOTES: NOTED RIGHT ARM SWOLLEN MOVED IV TO LEFT WRIST SALINE LOCK SHOW THE ARM TO DR ELLIOTT WHO SAID IT IS INFILTRATED REMOVED RIGHT ARM IV LINE WITH NEW ORDER OF RIGHT ARM VENOUS ULTRASOUND
[2022-05-17] MEDS: MORPHINE SULFATE INJ 2 MG/ML DISP.SYRIN IV PRN (08:04)
[2022-05-17] MEDS: METOCLOPRAMIDE HCL 10 MG/2 ML VIAL IV SCH ×3 (08:04→17:31)
[2022-05-17 08:12] LABS: CALCIUM, SERUM 8.2 mg/dL (8.5-10.1); CREATININE 0.7 mg/dL (0.6-1.3); POTASSIUM 3.5 mmol/L (3.5-5.1)
[2022-05-17 12:00] VITALS: BP 134/81
--- NOTE | 2022-05-17 12:30 | NUR ---
RN notes: venous doppler done to right arm per traffic signal technician is positive for cephalic vein left message to dr Roblero awaiting for call back
--- NOTE | 2022-05-17 13:30 | NUR ---
RN NOTES: DR ELLIOTT MADE AWARE OF THE PT HAS OCCLUSIVE DVT RIGHT ARM CEPHALIC VEIN AND NOT ON ANY BLOOD THINNER AT THIS TIME. WITH NO NEW ORDER AT THIS TIME
--- NOTE | 2022-05-17 15:38 | NUR ---
RN NOTES: RECEIVED AN ORDER TO CLAMP NGT, TUBE CLAMPED WILL MONITOR
[2022-05-17 16:00] VITALS: BP 111/75
--- NOTE | 2022-05-17 18:45 | NUR ---
RN NOTES: FOLLOWED WITH DR ELLIOTT IF HE IS GOING TO START ANTICOAGULANT, PER MAREN SURGEON METAL NEUTRALIZER PT CAN RESUME ANTICOAGULANT HE SAID HE PLACED AN ORDER FOR ANTICOAGULANT. REVIEWED CHART NOTED NEW ORDER FOR LOVENOX. DAUGHTER AT BEDSIDE MADE AWARE
--- NOTE | 2022-05-17 18:47 | NUR ---
RN NOTES: PT VERBALIZED SHE PASS GASES X 3 NOTIFIED MAREN MADDEN WHO SAID GREAT THANK YOU WILL NOTIFY HER OF GASTRIC RESIDUAL AROUND 7: 45 PM
--- NOTE | 2022-05-17 19:25 | NUR ---
RN CLOSING NOTE PT REMAINS IN STABLE CONDITION. A&OX3. SKIN IS WARM AND DRY. RESPIRATIONS EVEN AND UNLABORED ON 4 LPM NC. PT REMAINS NPO NGT CLAMPED AND ENDORSED TO DENTURE TECHNICIAN NURSE TO CHECK GASTRIC RESIDUAL ORDERED AROUND 7:45 PM AND TO REPORT TO MAREN MADDEN OF THE SURGEON DR MILTON. NO BM BUT PT PASSED GAS X3. BILATERAL SOFT RESTRAINTS IN PLACE. L WRIST 22G IVS INTACT AND PATENT. SAFETY PRECAUTIONS IN PLACE. BED LOCKED AND AT LOWEST LEVEL. 2 RAILS UP AND BED ALARM ON. CALL LIGHT WITHIN REACH.ENDORSED TO DENTURE TECHNICIAN RN FOR SHANIQUA
--- NOTE | 2022-05-17 19:30 | NUR ---
PROFESSOR OF ANTHROPOLOGY OPENING NOTE RECEIVED PT IN BED AWAKE, A/O X2-3, ON 4L O2 VIA NC, TOLERATING WELL, NO S/S OF DISTRESS, TELE MONITOR READING SR HR 72, IV ACCESS RWRIST #20G AND LWRIST, RUNNING D51/2 NS/@75ML/HR. LEFT NARE AT 70 CM KAMILA NGT CLAMPED. RESIDUAL OF 5ML. MONTES CATHETER DRAINING CLEAR YELLOW URINE. PT ABLE TO MAKE NEEDS KNOW. ALL SAFETY PRECAUTIONS IN PLACE. BED LOCKED AND AT LOWEST LEVEL. X2 RAILS UP. CALL LIGHT WITHIN REACH.WILL CONTINUE TO MONITOR THROUGH OUT SHIFT.
[2022-05-17 20:00] VITALS: BP 117/69
[2022-05-17] MEDS: ENOXAPARIN SODIUM 60 MG/0.6 ML DISP.SYRIN SQ SCH (21:10)
[2022-05-18] VITALS: BP 103/68
[2022-05-18 04:00] VITALS: BP 112/69
[2022-05-18] MEDS: IV D5/0.45 NACL 1,000 ML IV PRN ×2 (05:31→22:14)
--- NOTE | 2022-05-18 06:54 | NUR ---
ROTARY ENGINE ASSEMBLER CLOSING NOTE PT IN BED ASLEEP EASILY AROUSABLE, A/O X2-3, ON 4L O2 VIA NC, TOLERATING WELL, NO S/S OF DISTRESS, TELE MONITOR READING SR HR 65, IV ACCESS RWRIST #20G AND LWRIST, RUNNING D51/2 NS/@75ML/HR. LEFT NARE INTACT AND PATENT. MONTES CATHETER DRAINED 500ML CLEAR YELLOW URINE. PT ABLE TO MAKE NEEDS KNOW. ALL DUE MEDS GIVEN.ALL SAFETY PRECAUTIONS IN PLACE. BED LOCKED AND AT LOWEST LEVEL. X2 RAILS UP. CALL LIGHT WITHIN REACH.WILL ENDORSE TO MORNING SHIFT FOR SHANIQUA.
[2022-05-18 08:00] VITALS: BP 116/70
[2022-05-18] MEDS: METOCLOPRAMIDE HCL 10 MG/2 ML VIAL IV SCH ×3 (10:08→17:46)
[2022-05-18] MEDS: ENOXAPARIN SODIUM 60 MG/0.6 ML DISP.SYRIN SQ SCH ×2 (10:09→20:12)
[2022-05-18 12:00] VITALS: BP 122/70
[2022-05-18 16:00] VITALS: BP 123/74
--- NOTE | 2022-05-18 19:01 | NUR ---
RETAIL STORE ASSOCIATE CLOSING NOTE PT IN BED A/O X2-3, ON 4L O2 VIA NC, TOLERATING WELL, NO S/S OF DISTRESS, TELE MONITOR READING SR HR 84, IV ACCESS LW #20G. MONTES CATHETER DRAINED CLEAR YELLOW URINE. PT ABLE TO MAKE NEEDS KNOWN. ALL DUE MEDS GIVEN. ALL SAFETY PRECAUTIONS IN PLACE. BED LOCKED AND AT LOWEST POSITION X2 RAILS UP. CALL LIGHT WITHIN REACH. WILL ENDORSE TO MORNING SHIFT FOR SHANIQUA.
--- NOTE | 2022-05-18 19:30 | NUR ---
TOY CONSULTANT OPENING NOTE RECEIVED PT IN BED AWAKE, A/O X3-4, ON 4L O2 VIA NC, TOLERATING WELL, NO S/S OF DISTRESS, TELE MONITOR READING SR HR 72, IV ACCESS LFA #20G CURRENTLY INFILTRATED, WILL PLACE ANOTHER LINE SHORTLY. MONTES CATHETER DRAINING CLEAR YELLOW URINE. PT ABLE TO MAKE NEEDS KNOW. ALL SAFETY PRECAUTIONS IN PLACE. BED LOCKED AND AT LOWEST LEVEL. X2 RAILS UP. CALL LIGHT WITHIN REACH.WILL CONTINUE TO MONITOR THROUGH OUT SHIFT.
[2022-05-18 20:00] VITALS: BP 114/70
[2022-05-18] MEDS: MORPHINE SULFATE INJ 2 MG/ML DISP.SYRIN IV PRN (23:50)
[2022-05-19] VITALS: BP 128/81
[2022-05-19 04:00] VITALS: BP 120/71
[2022-05-19] MEDS: IV D5/0.45 NACL 1,000 ML IV PRN ×2 (05:14→13:32)
[2022-05-19 06:23] LABS: BASOPHILS % (AUTO) 0.6 % (0.0-2.0); HEMATOCRIT 30 % (33-45); HEMOGLOBIN 9.5 g/dL (11.5-14.8); LYMPHOCYTES # (AUTO) 1.6 K/uL (0.8-4.8); LYMPHOCYTES % (AUTO) 26.8 % (20.0-44.0); MEAN CORPUSCULAR HGB CONC 32 g/dl (31.0-36.0); MEAN CORPUSCULAR VOLUME 99 fL (82-100); MONOCYTES # (AUTO) 0.5 K/uL (0.1-1.30); MONOCYTES % (AUTO) 9.1 % (2.0-12.0); NEUTROPHILS # (AUTO) 3.6 K/uL (1.8-8.9); NEUTROPHILS % (AUTO) 60.5 % (43.0-81.0); PLATELET COUNT (AUTO) 237 K/uL (150-450); RED BLOOD CELL COUNT(AUTO) 3.03 MIL/uL (4.0-5.2); WHITE BLOOD COUNT (AUTO) 5.9 K/uL (4.3-11.0)
--- NOTE | 2022-05-19 06:45 | NUR ---
DATA SECURITY ANALYST CLOSING NOTE PT IN BED ASLEEP, AROUSES EASILY, A/O X3-4, ON 4L O2 VIA NC, TOLERATING WELL, NO S/S OF DISTRESS, TELE MONITOR READING SR HR 74, IV ACCESS LWRIST #22G, INTACT AND PATENT, RUNNING D51/2NS@75ML/HR. MONTES CATHETER DRAINED 1075ML OF CLEAR YELLOW URINE. PT ABLE TO MAKE NEEDS KNOW. ALL DUE MEDS GIVEN. ALL SAFETY PRECAUTIONS IN PLACE. BED LOCKED AND AT LOWEST LEVEL. X2 RAILS UP. CALL LIGHT WITHIN REACH.WILL ENDORSE TO MORNING SHIFT FOR SHANIQUA.
[2022-05-19 06:51] LABS: ALBUMIN 1.8 g/dL (3.4-5.0); BILIRUBIN,TOTAL 0.3 mg/dL (0.2-1.0); CALCIUM, SERUM 6.5 mg/dL (8.5-10.1); CREATININE 0.7 mg/dL (0.6-1.3); POTASSIUM 2.9 mmol/L (3.5-5.1); TOTAL PROTEIN, SERUM 4.7 g/dL (6.4-8.2)
--- NOTE | 2022-05-19 07:40 | NUR ---
DRILL GRINDER NOTE PT IN BED ASLEEP, AROUSES EASILY, A/O X3-4, ON 4L O2 VIA NC, TOLERATING WELL, NO S/S OF DISTRESS, TELE MONITOR READING SR HR IV ACCESS Lh HAND#22G, INTACT AND PATENT, RUNNING D51/2NS@75ML/HR. MONTES CATHETER DRAINED OF CLEAR YELLOW URINE. PT ABLE TO MAKE NEEDS KNOW. ALL SAFETY PRECAUTIONS IN PLACE. BED LOCKED AND AT LOWEST LEVEL. X2 RAILS UP. CALL LIGHT WITHIN REACH, WILL CONT TO MONITOR
[2022-05-19 08:00] VITALS: BP 147/80
[2022-05-19] MEDS: METOCLOPRAMIDE HCL 10 MG/2 ML VIAL IV SCH ×3 (08:26→16:13)
[2022-05-19] MEDS: ENOXAPARIN SODIUM 60 MG/0.6 ML DISP.SYRIN SQ SCH (08:27)
[2022-05-19] MEDS: PAROXETINE HCL 10 MG TABLET PO SCH (09:14)
[2022-05-19] MEDS: POTASSIUM CHLORIDE 20 MEQ TAB.PRT.SR PO SCH ×3 (09:29→12:06)
--- NOTE | 2022-05-19 10:39 | NUR ---
CAKE MAKER NOTE RESTING COMFORTABLY IN BED CONT ON IVF ORDERED, KEEP HOB ELEVATED, WILL CONT TO MONITOR
--- NOTE | 2022-05-19 10:44 | NUR ---
GARNETT MECHANIC NOTE PT AT BEDSIDE ABLE TO AMBULATE IN HALLWAY WITH WALKER
--- NOTE | 2022-05-19 11:21 | NUR ---
television picture tube rebuilder note seen by Michaelle rn regulatory compliance coordinator updated patient condition ,aware that no bm yet
[2022-05-19 12:00] VITALS: BP 120/63
--- NOTE | 2022-05-19 14:03 | NUR ---
clerk telegraph service note reported to donald that na 130 today with order give d5ns at 75 ml per hour, order carried out Addendum: 05/19/22 at 1540 by LETTY LEON RN MADE A BM ,KEEP CLEAN DRY . ALL NEEDS ATTENDED
[2022-05-19] MEDS: IV D5/ 0.9% NACL 1,000 ML IV PRN (14:12)
[2022-05-19 16:00] VITALS: BP 132/72
[2022-05-19] MEDS: APIXABAN 5 MG TABLET PO SCH (16:12)
--- NOTE | 2022-05-19 17:19 | NUR ---
BACKHOE OPERATOR NOTE HAVING DINNER , ABLE TO EAT SELF, STILL ON FULL LIQUID DIET ,TOLERATED WELL, WILL CONT TO MONITOR Addendum: 05/19/22 at 1811 by LETTY LEON RN on ra no, sob noted , made a bm large amt keep clean dry , all needs attended
--- NOTE | 2022-05-19 18:31 | NUR ---
telephone sterilizer note patient in bed , alert, oriented, on ra, no sob noted at this time , on ivf as ordered , bed in lowest and locked position , on tele monitor sr , call light within reach , bed in lowest and locked position , family at bedside, will cont to monitor closely, safety measure implemented
--- NOTE | 2022-05-19 19:49 | NUR ---
SENIOR SOFTWARE MANAGER OPENING NOTE RECEIVED PT IN BED AWAKE, A/O X3-4, ON RA, TOLERATING WELL SATING AT 96%, NO S/S OF DISTRESS, TELE MONITOR READING SR HR 72, IV ACCESS L HAND #20G INTACT, PATENT AND FLUSHING WELL RUNNING D5NS AT 75 ML/HR. MONTES CATHETER DRAINING CLEAR YELLOW URINE. PT ABLE TO MAKE NEEDS KNOWN. ALL SAFETY PRECAUTIONS IN PLACE. BED LOCKED AND AT LOWEST LEVEL. SIDE RAILS UP X2. CALL LIGHT WITHIN REACH. WILL CONTINUE TO MONITOR THROUGH OUT SHIFT.
[2022-05-19 20:00] VITALS: BP 126/77
[2022-05-20] VITALS: BP 146/85
[2022-05-20 04:00] VITALS: BP 141/83
[2022-05-20] MEDS: IV D5/ 0.9% NACL 1,000 ML IV PRN ×2 (04:26→17:47)
--- NOTE | 2022-05-20 06:40 | NUR ---
FIREPERSON CLOSING NOTE PT REMAINS IN BED AWAKE, A/O X3-4, ON 02 VIA NC AT 3LPM, TOLERATING WELL SATING AT 94%, NO S/S OF DISTRESS, TELE MONITOR READING SR HR 71, IV ACCESS L HAND #20G INTACT, PATENT AND FLUSHING WELL RUNNING D5NS AT 75 ML/HR. MONTES CATHETER DRAINING CLEAR YELLOW URINE. PT ABLE TO MAKE NEEDS KNOWN. ALL SAFETY PRECAUTIONS IN PLACE. BED LOCKED AND AT LOWEST LEVEL. SIDE RAILS UP X2. CALL LIGHT WITHIN REACH. WILL ENDORSE TO AM SHIFT NURSE FOR CONTINUITY OF CARE.
[2022-05-20 06:54] LABS: BASOPHILS % (AUTO) 0.4 % (0.0-2.0); HEMATOCRIT 34 % (33-45); HEMOGLOBIN 11.4 g/dL (11.5-14.8); LYMPHOCYTES # (AUTO) 1.5 K/uL (0.8-4.8); LYMPHOCYTES % (AUTO) 22.6 % (20.0-44.0); MEAN CORPUSCULAR HGB CONC 34 g/dl (31.0-36.0); MEAN CORPUSCULAR VOLUME 93 fL (82-100); MONOCYTES # (AUTO) 0.6 K/uL (0.1-1.30); MONOCYTES % (AUTO) 8.4 % (2.0-12.0); NEUTROPHILS # (AUTO) 4.4 K/uL (1.8-8.9); NEUTROPHILS % (AUTO) 65.6 % (43.0-81.0); PLATELET COUNT (AUTO) 320 K/uL (150-450); RED BLOOD CELL COUNT(AUTO) 3.64 MIL/uL (4.0-5.2); WHITE BLOOD COUNT (AUTO) 6.7 K/uL (4.3-11.0)
--- NOTE | 2022-05-20 07:00 | NUR ---
MIS DIRECTOR OPENING NOTES RECEIVED PATIENT IN BED, AWAKE,.A/O X 3-4. NO SOB OR CARDIAC DISTRESS NOTED. ON O2 INHALATION @3LPM VIA NC AND TOLERATING WELL. IV ACCESS ON LEFT HAND GAUGE 22 PATENT,INTACT AND INFUSING D5NS 1L @75ML/HR. SAFETY MEASURES MAINTAINED: BED LOCKED AND IN LOWEST POSITION, SIDE RAILS UP X 2. CALL LIGHT AND EASY REACH FOR HELP. WILL MONITOR PT ACCORDINGLY.
[2022-05-20 07:09] LABS: CALCIUM, SERUM 8.4 mg/dL (8.5-10.1); CREATININE 0.6 mg/dL (0.6-1.3); POTASSIUM 3.9 mmol/L (3.5-5.1)
[2022-05-20 08:00] VITALS: BP 123/67
[2022-05-20] MEDS: METOCLOPRAMIDE HCL 10 MG/2 ML VIAL IV SCH ×3 (08:16→16:37)
[2022-05-20] MEDS: PAROXETINE HCL 10 MG TABLET PO SCH (08:16)
[2022-05-20] MEDS: APIXABAN 5 MG TABLET PO SCH ×2 (08:20→16:37)
[2022-05-20 12:00] VITALS: BP 147/80
[2022-05-20 16:00] VITALS: BP 136/78
--- NOTE | 2022-05-20 18:48 | NUR ---
MS RN CLOSING NOTES: PATIENT IN BED, AWAKE.A/O X 3 TURKISH SPEAKING . NO SOB OR CARDIAC DISTRESS NOTED. ON ROOM AIR AND TOLERATING WELL. IV ACCESS ON RFA GAUGE 22 PATENT AND INTACT. NOTED WITH ORESTES AV FISTULA PATENT AND WITH DRY DRESSING.PT HAD HD TODAY. PATIENT HAS 1:1 SITTER, NO SUICIDAL IDEATION, SIGNS OF HALLUCINATION EXPERIENCED IN OUR SHIFT PER PATIENT. SAFETY MEASURES MAINTAINED: BED LOCKED AND IN LOWEST POSITION, SIDE RAILS UP X 2. CALL LIGHT AND EASY REACH FOR HELP. WILL MONITOR PT ACCORDINGLY. ENDORSED TO MEDICAL COST CONSULTANT RN FOR CONTINUITY OF CARE.
--- NOTE | 2022-05-20 19:57 | NUR ---
RN NOTE RECEIVED PT AWAKE. AOX3. ON O2 AT 3L. DENIES ANY PAIN OR SOB. NOT IN ANY DISTRESS. D51/2NS AT 75ML/HR INFUSING WELL ON LHAND. MNOTES CATH IN PLACE, DRAINING CLEAR URINE OUTPUT. ALL SAFETY MEASURES IN PLACE. WILL CONTINUE TO MONITOR.
[2022-05-20 20:00] VITALS: BP 140/82
[2022-05-21] VITALS: BP 143/77
[2022-05-21 04:00] VITALS: BP 131/71
[2022-05-21] MEDS: IV D5/ 0.9% NACL 1,000 ML IV PRN ×2 (06:11→20:39)
--- NOTE | 2022-05-21 06:37 | NUR ---
RN NOTE PT TOLERATING O2 AT 3L. NOT IN ANY DISTRESS. DENIES PAIN OR SOB. SR ON TELE MONITOR WITH HR 73. CONTINUE ON IVFLUIDS D5NS AT 75ML/HR, INFUSING WELL. MONTES CATH WITH GOOD AMOUNT OF URINE OUTPUT. REMAIN AFEBRILE. WILL ENDORSE TO AM SHIFT NURSE FOR SHANIQUA
--- NOTE | 2022-05-21 07:00 | NUR ---
RN NOTE RECEIVED PATIENT IN BED RESTING ALERT ORIENTED X3 VERBALLY RESPONSIVE ON 3L OXYGEN VIA NASAL CANNULA O2:96% IV SITE IS ON LEFT HAND INTACT PATENT,ON IV HYDRATION D51/2NS 75CC/HR,MONTES CATH IN PLACE URINE DRAINING YELLOW/CLEAR BY GRAVITY,SAFETY MEASURE IMPLEMENT BED IN LOW POSITION AND LOCKED,BED IN LOW POSITION AND LOCKED,CALL LIGHT WITHIN REACH CONTINUE TO MONITOR.
[2022-05-21 07:16] LABS: CALCIUM, SERUM 8.2 mg/dL (8.5-10.1); CREATININE 0.6 mg/dL (0.6-1.3); POTASSIUM 4.2 mmol/L (3.5-5.1)
[2022-05-21 07:50] LABS: BASOPHILS % (AUTO) 0.6 % (0.0-2.0); EOSINOPHILS % (AUTO) 2.4 % (0.0-6.0); HEMATOCRIT 36 % (33-45); HEMOGLOBIN 11.9 g/dL (11.5-14.8); LYMPHOCYTES # (AUTO) 1.6 K/uL (0.8-4.8); LYMPHOCYTES % (AUTO) 22.7 % (20.0-44.0); MEAN CORPUSCULAR HGB CONC 33 g/dl (31.0-36.0); MEAN CORPUSCULAR VOLUME 94 fL (82-100); MONOCYTES # (AUTO) 0.5 K/uL (0.1-1.30); MONOCYTES % (AUTO) 6.8 % (2.0-12.0); NEUTROPHILS # (AUTO) 4.8 K/uL (1.8-8.9); NEUTROPHILS % (AUTO) 67.5 % (43.0-81.0); PLATELET COUNT (AUTO) 344 K/uL (150-450); RED BLOOD CELL COUNT(AUTO) 3.83 MIL/uL (4.0-5.2)
[2022-05-21 08:00] VITALS: BP 142/78
[2022-05-21] MEDS: PAROXETINE HCL 10 MG TABLET PO SCH (08:04)
[2022-05-21] MEDS: METOCLOPRAMIDE HCL 10 MG/2 ML VIAL IV SCH ×3 (08:05→16:12)
[2022-05-21] MEDS: APIXABAN 5 MG TABLET PO SCH ×2 (08:05→16:13)
--- NOTE | 2022-05-21 18:29 | NUR ---
RN NOTE PATIENT REMAIN IN ALERT ORIENTED X4 VERBALLY VERBALLY RESPONSIVE ON 3L OXYGEN VIA NASAL CANNULA,O2:94% NO SOB NOT ACUTE DISTRESS NOTED,ON IV HYDRATION NSD5 75CC/HR IV SITE IS ON LEFT HAND INTACT PATENT ALL DUE MEDS GIVEN MD ORDERED KEPT CLEAN AND DRY ALL THE TIME,MONTES CATH IN PLACE,MD ORDERED REMOVE TOMORROW MORNING,KEPT HEAD OF THE BED ELEVATED ALL THE TIME,ALL NEEDS MET,KEPT CALL LIGHT WITHIN REACH,ENDORSE NEXT COMING SHIFT FOR CONTINUATION OF CARE.
--- NOTE | 2022-05-21 19:30 | NUR ---
MED SURGE OPEN NOTE: ALERT AND ORIENTED TO NAME AND TIME. REORIENTED TO PLACE AND SITUATION. UNLABORED BREATHING WITH 02 3LPM NC. IV SITE ON LEFT HAND WITH IVF D5 NS AT 75 ML/HR. MONTES CATHETER WITH YELLOW URINE. DENIES PAIN OR DISCOMFORT. HOB ELEVATED SEMI-FOWLERS POSITION, BED IN LOW POSITION, LOCKED,AND EXIT ALARM ON. CALL LIGHT IN REACH.
[2022-05-21 20:00] VITALS: BP 147/81
[2022-05-22 04:00] VITALS: BP 127/70
--- NOTE | 2022-05-22 07:00 | NUR ---
MED SURGE CLOSE NOTE: ALERT AND ORIENTED TO NAME AND TIME. REORIENTED TO PLACE AND SITUATION. UNLABORED BREATHING WITH 02 3LPM NC. IV SITE ON LEFT FOREARM WITH IVF D5 NS AT 75 ML/HR. MONTES CATHETER WITH YELLOW URINE DISCONTINUED TOLERATED WELL. DENIES PAIN OR DISCOMFORT. BILATERAL HALF SIDE RAILS UP X2. HOB ELEVATED SEMI-FOWLERS POSITION, BED IN LOW POSITION, LOCKED,AND EXIT ALARM ON. CALL LIGHT IN REACH. NO BOWEL MOVEMENT YET.
--- NOTE | 2022-05-22 07:10 | NUR ---
RN OPENING NOTE RECEIVED PATIENT IN BED RESTING ALERT ORIENTED X3 VERBALLY RESPONSIVE ON 3L OXYGEN VIA NASAL CANNULA O2:96% IV SITE IS ON LEFT FOREARM INTACT PATENT,ON IV HYDRATION D51/2NS 75CC/HR,SAFETY MEASURE IMPLEMENT BED IN LOW POSITION AND LOCKED,BED IN LOW POSITION AND LOCKED,CALL LIGHT WITHIN REACH CONTINUE TO MONITOR.
[2022-05-22 08:00] VITALS: BP 131/77
[2022-05-22] MEDS: METOCLOPRAMIDE HCL 10 MG/2 ML VIAL IV SCH ×2 (08:42→13:25)
[2022-05-22] MEDS: PAROXETINE HCL 10 MG TABLET PO SCH (08:42)
[2022-05-22] MEDS: APIXABAN 5 MG TABLET PO SCH (08:47)
--- NOTE | 2022-05-22 12:00 | NUR ---
RN NOTES: PT NOTED WITH SMALL NORMAL BOWEL MOVEMENT NOTIFIED DR MILTON THE SURGEON WHO SAID OK TO DISCHARGE
--- NOTE | 2022-05-22 15:33 | NUR ---
PATENT CLERK NOTES: DISCHARGE ORDER OBTAINED PER DAUGHTER REQUEST, CASE MANAGEMENT REFEREED HER TO [facility], MIDLINE REMOVED,VS WITHIN NORMAL SKIN INTACT, CALLED [facility] AND REPORT GIVEN TO DARLIN DOUGLAS, PICKED BY [id number] IN STABLE CONDITION
== END 2022-05-22 16:00 | DRG 329 ==
LOC: ER 08:50 → MED 11:23 → TELE 13:07 → ICU 05-12 21:47 → TELE1 05-14 05:52 → TELE-TD 05-14 20:58 → TELE1 05-15 09:39 → MEDSG1 05-21 09:35
PROVIDERS: ADMIT Internal Medicine; ATTEND Internal Medicine
PROC: 0DQ83ZZ Repair Small Intestine, Percutaneous Approach (ICD-10-PCS; principal; 2022-05-12)
PROC: 0DN84ZZ Release Small Intestine, Percutaneous Endoscopic Approach (ICD-10-PCS; 2022-05-12)
PROC: 05HA33Z Insertion of Infusion Device into Left Brachial Vein, Percutaneous Approach (ICD-10-PCS; 2022-05-22)
DX: K46.0 Unspecified abdominal hernia with obstruction, without gangrene (principal); N17.0 Acute kidney failure with tubular necrosis; K56.7 Ileus, unspecified; E87.20 Acidosis, unspecified; I82.621 Acute embolism and thrombosis of deep veins of right upper extremity; I48.91 Unspecified atrial fibrillation; K44.9 Diaphragmatic hernia without obstruction or gangrene; Z79.01 Long term (current) use of anticoagulants; Z20.822 Contact with and (suspected) exposure to COVID-19; K66.0 Peritoneal adhesions (postprocedural) (postinfection); K57.90 Diverticulosis of intestine, part unspecified, without perforation or abscess without bleeding; I10 Essential (primary) hypertension; I70.8 Atherosclerosis of other arteries; Z88.2 Allergy status to sulfonamides; Z79.899 Other long term (current) drug therapy; D72.829 Elevated white blood cell count, unspecified; K76.9 Liver disease, unspecified; N20.0 Calculus of kidney
CPT/HCPCS: 36415; 71045-TC; 74018; 80048-TC; 80053-TC; 80076-TC; 82947-TC; 82962-TC; 83605-TC; 83690-TC; 83735-TC; 84100-TC; 84484-TC; 85025-TC; 87040-TC; 87081-TC; 93971-TC; 94799-TC; 97112-TC; 97116-TC; 97530-TC; C9803; G0378; J0330; J0690; J1100; J1650; J2270; J2405; J2543; J2704; J2765; J3010; J3490; J7030; J7042; J7060; Q9963